=== PATIENT | male | born 1985 | race Caucasian/White ===

== ENCOUNTER 2024-01-21 14:56 | Emergency (ER) | payer OTHER ==
[2024-01-21 15:24] VITALS: BP 114/76; PULSE 74; RESP 16; TEMP 97.9; BMI 29.9
== END 2024-01-21 15:47 | disposition home or self-care (01) ==
LOC: FER 14:56
PROC: 09C4XZZ Extirpation of Matter from Left External Auditory Canal, External Approach (ICD-10-PCS; principal; 2024-01-21)
DX: T16.2XXA Foreign body in left ear, initial encounter (principal)
CPT/HCPCS: 99283-25